=== PATIENT | female | born 1965 | race African-American/Black ===

== ENCOUNTER 2018-03-05 12:21 | Emergency (ER) | payer SELFPAY ==
[2018-03-05] MEDS: DEXAMETHASONE 4 MG TABLET PO (13:45)
== END 2018-03-05 13:47 | disposition home or self-care (01) ==
LOC: ER 12:21
DX: M54.12 Radiculopathy, cervical region (principal); M79.604 Pain in right leg; M79.601 Pain in right arm; I10 Essential (primary) hypertension
CPT/HCPCS: 99283; J8540